=== PATIENT | female | born 1950 | race Caucasian/White ===

== ENCOUNTER 2019-05-29 14:02 | Emergency (ER) | payer OTHER ==
[~2019-05-29] VITALS: Ht 170.2 cm; Wt 87.1 kg
[~2019-05-29 14:02] MED LIST: Aspir 8181 MG PO; CLOP75 PO; ETOD500; Ester-C 500 MG1 EACH PO; FIBER GUMMIES1 EACH PO; FLUC150A PO; Fish Oil300 MG PO; HYDACE5 PO; MECL25 PO; MICO2TCA TOP; Multiple Vitam1 EAC1 PO; Norco 5-325 Ta1 EACH PO; SULTRIDS PO
[2019-05-29 15:27] LABS: BASOPHILS ABSOLUTE AUTO 0.05 K/mm3 (0.00-0.23); BASOPHILS PERCENT AUTO 1 % (0-2); EOSINOPHILS ABSOLUTE AUTO 0.04 K/mm3 (0.00-0.68); EOSINOPHILS PERCENT AUTO 1 % (0-6); Hematocrit 44.8 % (33.0-51.0); Hemoglobin 14.8 g/dL (11.5-16.0); IMMATURE GRAN ABSOLUTE AUTO 0.02 K/mm3 (0.00-0.10); IMMATURE GRAN PERCENT AUTO 0 % (0-1); LYMPHOCYTES ABSOLUTE AUTO 2.05 K/mm3 (0.84-5.20); LYMPHOCYTES PERCENT AUTO 23 % (21-46); MONOCYTES ABSOLUTE AUTO 0.53 K/mm3 (0.16-1.47); MONOCYTES PERCENT AUTO 6 % (4-13); Mean Corpuscular HGB 32.2 pg (26.0-34.0); Mean Corpuscular Volume 97 fL (80-100); Mean Platelet Volume 10.7 fL (9.1-12.4); NEUTROPHILS ABSOLUTE AUTO 6.12 K/mm3 (1.96-9.15); NEUTROPHILS PERCENT AUTO 69 % (41-73); Platelet Count 241 K/mm3 (150-400); RDW Coefficient Variation 11.6 % (11.7-14.2); RDW Standard Deviation 41.7 fL (35.1-46.3); White Blood Cell Count 8.81 K/mm3 (4.00-11.30)
[2019-05-29 15:38] LABS: Source, Urine Catheter
[2019-05-29 15:48] LABS: Alanine Aminotransfer (ALT/SGP 52 U/L (12-78); Albumin, Blood 3.9 g/dL (3.4-5.0); Albumin/Globulin Ratio 1.1 (0.8-1.8); Alk Phos 82 U/L (50-136); Anion Gap 7 mmol/L (6-16); Aspartate Aminotrans (AST/SGOT 38 U/L (12-37); Bilirubin, Total 0.4 mg/dL (0.1-1.0); Blood Urea Nitrogen 16 mg/dL (8-24); Bun/Creatinine Ratio 20.6 (12.0-20.0); CO2, Blood 24 mmol/L (21-32); Calcium, Blood 9.3 mg/dL (8.5-10.1); Chloride, Blood 109 mmol/L (98-108); Creatinine, Blood 0.78 mg/dL (0.40-1.00); Globulin, Blood 3.7 g/dL (2.2-4.0); Glomerular Filtration Rate >60 (60-); Glucose, Blood 86 mg/dL (70-99); Potassium, Blood 4.3 mmol/L (3.5-5.5); Sodium, Blood 140 mmol/L (136-145); Total Protein, Blood 7.6 g/dL (6.4-8.2)
[2019-05-29 15:51] LABS: Bilirubin, Urine Neg (Neg); Blood, Urine Neg (Neg); Glucose Qualitative, Urine Neg (Neg); Ketones, Urine 1+ (Neg); Leukocyte Esterase, Urine 1+ (Neg); Nitrite, Urine Neg (Neg); Protein, Urine 1+ (Neg); Specific Gravity, Urine 1.025 (1.003-1.022); Urobilinogen, Urine NORM (Normal)
[2019-05-29 16:03] LABS: Appearance, Urine Clear (Clear); Color, Urine Yellow (P-Yellow)
[2019-05-29 16:04] LABS: Red Blood Cells, Urine 0-2 /hpf (0-2); Squamous Epithelial Cells Few /hpf (Few)
[2019-05-29 16:05] LABS: Bacteria Few /hpf
== END 2019-05-29 17:03 | disposition home or self-care (01) ==
LOC: ER 14:02
PROVIDERS: Physician Assistant
DX: N39.0 Urinary tract infection, site not specified (principal)
CPT/HCPCS: 36415; 74176; 80053; 81001; 83690; 85025; 87086; 96374; 99284-25; J1170

== ENCOUNTER 2021-11-02 11:02 | Day surgery (SDC) | payer OTHER ==
[~2021-11-02] VITALS: Ht 167.6 cm; Wt 84.5 kg
[~2021-11-02 11:02] MED LIST changes: +ASPI325 PO; +B COMPLEX FORM0.4 MG PO; +EZET10; +FISH OIL 1,2001 EAC7 PO; +GEMF600 PO; +Garlic500 MG PO; +THERA-D2000 UNIT PO
[2021-11-02] MEDS ORDERED: MULVITA (11:17)
[2021-11-02] MEDS ORDERED: Apple Cider Vi300 MG (11:17)
== END 2021-11-02 13:15 | disposition home or self-care (01) ==
LOC: ORSCSDS 11:02
PROVIDERS: Internal Medicine Gastroenterology
PROC: 0DBN8ZX Excision of Sigmoid Colon, Via Natural or Artificial Opening Endoscopic, Diagnostic (ICD-10-PCS; principal; 2021-11-02 12:15)
DX: Z12.11 Encounter for screening for malignant neoplasm of colon (principal); Z86.010 Personal history of colon polyps; K63.5 Polyp of colon; E66.9 Obesity, unspecified; K57.30 Diverticulosis of large intestine without perforation or abscess without bleeding; K64.8 Other hemorrhoids; Z68.30 Body mass index [BMI] 30.0-30.9, adult; Z79.82 Long term (current) use of aspirin; Z79.899 Other long term (current) drug therapy
CPT/HCPCS: 88305; J2405; J2704; J7120

== ENCOUNTER 2023-02-07 13:39 | Emergency (ER) | payer OTHER ==
[~2023-02-07] VITALS: Ht 167.6 cm; Wt 83.9 kg
[~2023-02-07 13:39] MED LIST changes: +Apple Cider Vi300 MG; +MULVITA
[2023-02-07 14:04] VITALS: BP 146/75
[2023-02-07] MEDS ORDERED: Norco 5-325 Ta1 EACH PO (15:00)
== END 2023-02-07 15:30 | disposition home or self-care (01) ==
LOC: ER 13:39
DX: S82.61XA Displaced fracture of lateral malleolus of right fibula, initial encounter for closed fracture (principal); Z79.82 Long term (current) use of aspirin; Z79.899 Other long term (current) drug therapy; W10.9XXA Fall (on) (from) unspecified stairs and steps, initial encounter
CPT/HCPCS: 29515; 73610; 99283-25

== ENCOUNTER 2023-05-31 10:49 | Day surgery (SDC) | payer OTHER ==
[~2023-05-31] VITALS: Ht 167.6 cm; Wt 83.3 kg
[~2023-05-31 10:49] MED LIST changes: +Balanced Salt Epinephrine Irrigation Solution 500 mL IR SCH; +EZET10 PO; +Lidocaine HCl/Pf 1% 5 ML VIAL XX SCH; +Moxifloxacin HCL 0.5 MG/0.1 ML 0.4MLSYR RIGHTEYE SCH; +NS 500 ML IV ONE; +PHENYLEPHRINE\\TROPICAMIDE\\TETRACAINE OPHTHALMIC DILATING SOLN RIGHTEYE PRN; +Povidone-Iodine 450 DROP/30 ML Solution ONE; +Povidone-Iodine 450 DROP/30 ML Solution RIGHTEYE SCH
[2023-05-31] MEDS ORDERED: B COMPLEX (11:03)
[2023-05-31] MEDS ORDERED: CENTRUM SILVER1 EAC2 PO (11:04)
[2023-05-31] MEDS ORDERED: NS 500 ML IV ONE (11:14)
[2023-05-31] MEDS ORDERED: Tetracaine HCl 0.5% Opth Soln 15 ml RIGHTEYE ONE (11:26)
[2023-05-31] MEDS ORDERED: Midazolam HCl 1MG / ML 2ML Vial ONE (11:27)
[2023-05-31] MEDS ORDERED: FentaNYL Citrate 50 MCG/ML 2 ML Injection ONE (11:27)
[2023-05-31 11:45] VITALS: BP 119/73
== END 2023-05-31 12:05 | disposition home or self-care (01) ==
LOC: ORSCSDS 10:49
PROVIDERS: Student in an Organized Health Care Education/Training Program
PROC: 08RJ3JZ Replacement of Right Lens with Synthetic Substitute, Percutaneous Approach (ICD-10-PCS; principal; 2023-05-31 12:00)
DX: H25.13 Age-related nuclear cataract, bilateral (principal); K21.9 Gastro-esophageal reflux disease without esophagitis; Z79.82 Long term (current) use of aspirin; Z79.899 Other long term (current) drug therapy
CPT/HCPCS: J2250; J3010; J7040; V2632

== ENCOUNTER 2023-06-14 10:41 | Day surgery (SDC) | payer OTHER ==
[~2023-06-14] VITALS: Ht 167.6 cm; Wt 84.6 kg
[~2023-06-14 10:41] MED LIST changes: +B COMPLEX; +CENTRUM SILVER1 EAC2 PO; +Moxifloxacin HCL 0.5 MG/0.1 ML 0.4MLSYR LEFTEYE SCH; -Moxifloxacin HCL 0.5 MG/0.1 ML 0.4MLSYR RIGHTEYE SCH; +PHENYLEPHRINE\\TROPICAMIDE\\TETRACAINE OPHTHALMIC DILATING SOLN LEFTEYE PRN; -PHENYLEPHRINE\\TROPICAMIDE\\TETRACAINE OPHTHALMIC DILATING SOLN RIGHTEYE PRN; +Povidone-Iodine 450 DROP/30 ML Solution LEFTEYE SCH; -Povidone-Iodine 450 DROP/30 ML Solution RIGHTEYE SCH
[2023-06-14] MEDS ORDERED: Phenylephrine Frt 10% Opth (ORSC) ONE (10:51)
--- NOTE | 2023-06-14 11:04 | NUR ---
06/14/23 1104 Monalisa Ntetles AT 1103 PLEDGET AT 1104
[2023-06-14] MEDS ORDERED: NS 500 ML IV ONE (11:14)
[2023-06-14] MEDS ORDERED: FentaNYL Citrate 50 MCG/ML 2 ML Injection ONE (11:22)
[2023-06-14] MEDS ORDERED: Midazolam HCl 1MG / ML 2ML Vial ONE (11:22)
[2023-06-14] MEDS ORDERED: Tetracaine HCl 0.5% Opth Soln 15 ml XX ONE (11:40)
[2023-06-14 12:08] VITALS: BP 120/65
== END 2023-06-14 12:14 | disposition home or self-care (01) ==
LOC: ORSCSDS 10:41
PROVIDERS: Student in an Organized Health Care Education/Training Program
PROC: 08RK3JZ Replacement of Left Lens with Synthetic Substitute, Percutaneous Approach (ICD-10-PCS; principal; 2023-06-14 12:00)
DX: H25.12 Age-related nuclear cataract, left eye (principal); Z96.1 Presence of intraocular lens; H40.033 Anatomical narrow angle, bilateral; Z79.82 Long term (current) use of aspirin; Z79.899 Other long term (current) drug therapy
CPT/HCPCS: J2250; J3010; J7040; V2632

== ENCOUNTER 2024-02-19 00:42 | Emergency (ER) | payer OTHER ==
[~2024-02-19] VITALS: Ht 167.6 cm; Wt 77.1 kg
[~2024-02-19 00:42] MED LIST changes: -Balanced Salt Epinephrine Irrigation Solution 500 mL IR SCH; -Lidocaine HCl/Pf 1% 5 ML VIAL XX SCH; -Moxifloxacin HCL 0.5 MG/0.1 ML 0.4MLSYR LEFTEYE SCH; -NS 500 ML IV ONE; -PHENYLEPHRINE\\TROPICAMIDE\\TETRACAINE OPHTHALMIC DILATING SOLN LEFTEYE PRN; -Povidone-Iodine 450 DROP/30 ML Solution LEFTEYE SCH; -Povidone-Iodine 450 DROP/30 ML Solution ONE
[2024-02-19 01:12] VITALS: BP 129/75
[2024-02-19 01:38] LABS: BASOPHILS ABSOLUTE AUTO 0.06 K/mm3 (0.00-0.23); BASOPHILS PERCENT AUTO 1 % (0-2); EOSINOPHILS ABSOLUTE AUTO 0.03 K/mm3 (0.00-0.68); EOSINOPHILS PERCENT AUTO 0 % (0-6); Hematocrit 41.2 % (33.0-51.0); Hemoglobin 13.9 g/dL (11.5-16.0); IMMATURE GRAN ABSOLUTE AUTO 0.04 K/mm3 (0.00-0.10); IMMATURE GRAN PERCENT AUTO 0 % (0-1); LYMPHOCYTES ABSOLUTE AUTO 1.32 K/mm3 (0.84-5.20); LYMPHOCYTES PERCENT AUTO 14 % (21-46); MONOCYTES ABSOLUTE AUTO 0.66 K/mm3 (0.16-1.47); MONOCYTES PERCENT AUTO 7 % (4-13); Mean Corpuscular HGB 31.9 pg (26.0-34.0); Mean Corpuscular HGB Conc 33.7 g/dL (31.5-36.5); Mean Corpuscular Volume 95 fL (80-100); NEUTROPHILS ABSOLUTE AUTO 7.61 K/mm3 (1.96-9.15); NEUTROPHILS PERCENT AUTO 78 % (41-73); Platelet Count 193 K/mm3 (150-400); RDW Coefficient Variation 11.9 % (11.7-14.2); RDW Standard Deviation 41.8 fL (35.1-46.3); Red Blood Cell Count 4.36 M/mm3 (3.80-5.20); White Blood Cell Count 9.72 K/mm3 (4.00-11.30)
[2024-02-19] MEDS ORDERED: NS 1,000 ML IV SCH (01:55)
[2024-02-19] MEDS ORDERED: Ondansetron HCl 2 MG / ML 2ML Vial IV ONE (01:55)
[2024-02-19 01:57] LABS: Albumin, Blood 3.2 g/dL (3.4-5.0); Albumin/Globulin Ratio 0.8 (0.8-1.8); Bilirubin, Total 0.5 mg/dL (0.1-1.0); Bun/Creatinine Ratio 24.3 (12.0-20.0); Calcium, Blood 9.1 mg/dL (8.5-10.1); Creatinine, Blood 0.74 mg/dL (0.40-1.00); Globulin, Blood 3.9 g/dL (2.2-4.0); Potassium, Blood 3.4 mmol/L (3.5-5.5); Total Protein, Blood 7.1 g/dL (6.4-8.2)
[2024-02-19] MEDS ORDERED: Potassium Chloride 20 MEQ TabCR PO ONE (02:25)
[2024-02-19] MEDS ORDERED: ONDA4ODT MM (03:17)
== END 2024-02-19 03:28 | disposition home or self-care (01) ==
LOC: ER 00:42
PROVIDERS: Emergency Medicine
DX: J10.1 Influenza due to other identified influenza virus with other respiratory manifestations (principal); Z79.899 Other long term (current) drug therapy; Z79.82 Long term (current) use of aspirin
CPT/HCPCS: 80053; 85025; 93005; 93010; 96374; 99285-25; A9270; J2405; J7030